=== PATIENT | female | born 1990 | race Caucasian/White ===

== ENCOUNTER 2016-12-09 16:21 | Emergency (ER) | payer BC ==
[~2016-12-09 16:21] MED LIST: ALEVE220 M4 PO; CYCLOBENZAPRINE5 M1 PO; NAPROXEN250 MG; PERCOCET 5-3251 EACH PO; QUETIAPINE FUM300 M1 PO; SENOKOT-S TABL1 EACH PO; TYLENOL325 M2 PO; TYLENOL325 MG; YASMIN 28 TABL1 EACH PO; YASMIN 28 TABLE1 TAB
[2016-12-09] MEDS ORDERED: SEROQUEL100 M2 PO (16:41)
[2016-12-09] MEDS ORDERED: LEXAPRO10 M2 PO (16:41)
[2016-12-09 17:32] LABS: BASO % 0.2 % (0-2); HGB-HEMOGLOBIN 12.4 gm/dl (12.0-15.5); LYMPH % 34.7 % (20-45); LYMPH ABSOLUTE COUNT 1.6 tho/cmm (0.8-4.5); MCH (MEAN CORPUSCULAR HGB) 29.3 pg (28.0-32.0); MCHC MEAN CORPUSCULAR HGB CONC 33.5 % (32.0-36.0); MCV (MEAN CELL VOLUME) 87.5 fl (82.0-96.0); MEAN PLATELET VOLUME 9.4 cmc (9.4-12.4); MONO % 9.3 % (0-12); MONOCYTE ABSOLUTE COUNT 0.4 tho/cmm (0.0-1.2); NEUTROPHIL ABSOLUTE COUNT 2.6 tho/cmm (1.6-8.0); NEUTROPHIL-AUTOMATED 2.6 tho/cmm (1.6-8.0); NEUTROPHILS % 55.8 % (40-80); PLATELET COUNT 269 tho/cmm (150-450); RED BLOOD COUNT 4.23 mil/cmm (4.00-5.20); RED CELL DISTRIBUTION WIDTH 12.7 % (12.4-16.4); WHITE BLOOD COUNT 4.7 tho/cmm (4.0-10.0)
[2016-12-09 17:33] LABS: URINE BILIRUBIN NEGATIVE (NEG); URINE BLOOD NEGATIVE (NEG); URINE GLUCOSE (UA) NEGATIVE (NEG); URINE KETONE NEGATIVE (NEG); URINE LEUKOCYTE ESTERASE NEGATIVE (NEG); URINE NITRITE NEGATIVE (NEG); URINE PROTEIN NEGATIVE (NEG); URINE SPECIFIC GRAVITY 1.015 (1.003-1.030)
[2016-12-09 17:34] LABS: URINE APPEARANCE HAZY; URINE COLOR YELLOW
[2016-12-09 17:41] LABS: PREGNANCY-SERUM NEGATIVE (NEGATIVE)
[2016-12-09 17:48] LABS: ALB/GLOB RATIO 0.9 (0.8-2.0); ALBUMIN 3.4 g/dl (3.5-5.0); ALKALINE PHOSPHATASE 117 U/L (33-138); ALT/SGPT 33 U/L (12-78); BILIRUBIN,TOTAL 0.2 mg/dl (0-1.5); BLOOD UREA NITROGEN 11 mg/dl (6-24); CALCIUM 8.6 mg/dl (8.5-10.5); CARBON DIOXIDE-VENOUS 24 mmol/L (22-32); CHLORIDE 109 mmol/l (96-110); GLUCOSE 91 mg/dL (70-110); LIPASE 237 U/L (73-393); SODIUM 141 mmol/L (135-145); eGFR VALUE FOR BLACK >90 mL/Min
[2016-12-09 17:50] LABS: ANION GAP 12 mmol/L (0-20); AST/SGOT 33 U/L (10-40)
[2016-12-09 17:51] LABS: POTASSIUM 4.2 mmol/L (3.7-5.1)
[2016-12-09] MEDS ORDERED: CIPRO500 M2 PO (18:56)
== END 2016-12-09 19:11 ==
LOC: EDMED 16:21
PROVIDERS: Physician Assistant
DX: K52.9 Noninfective gastroenteritis and colitis, unspecified (principal); Z87.42 Personal history of other diseases of the female genital tract; Z87.891 Personal history of nicotine dependence
CPT/HCPCS: J7030; Q9967